=== PATIENT | female | born 1980 | race Caucasian/White ===

== ENCOUNTER → 2016-04-26 | Outpatient (CLI) | payer BC ==
--- NOTE | 2016-04-26 10:53 | REP ---
LEFT FOOT, FOUR VIEWS: HISTORY: Injury. There is no acute fracture or dislocation. There is an old fracture of the fourth metatarsal. The joint spaces are normal in appearance. IMPRESSION: There is no acute fracture or dislocation. Signed by Hong Gonzales MD 04/26/2016 10:56 A
== END ==
LOC: M WUC 10:20
PROVIDERS: ATTEND Physician Assistant
DX: S90.32XA Contusion of left foot, initial encounter (principal); X58.XXXA Exposure to other specified factors, initial encounter; Y92.89 Other specified places as the place of occurrence of the external cause; Y93.89 Activity, other specified; Y99.8 Other external cause status

== ENCOUNTER → 2016-05-16 | Outpatient (REF) | payer BC | LOC: M SFHCWAGY 10:58 | PROVIDERS: ATTEND Nurse Practitioner Family | DX: Z11.51 Encounter for screening for human papillomavirus (HPV) (principal) ==

== ENCOUNTER → 2017-01-29 | Outpatient (CLI) | payer BC ==
--- NOTE | 2017-01-29 11:48 | REP ---
Clinical: Cough . Comparison: 04/11/2014 . Technique: PA and lateral. Findings: The mediastinum and cardiac silhouette are normal. The lung carlson are clear and without acute consolidation, effusion, or pneumothorax. The skeletal structures are intact and normal. Impression: 1. No acute cardiopulmonary process. Signed by Benja Moon MD 01/29/2017 11:40 A
== END ==
LOC: M SMT 11:14
PROVIDERS: ATTEND Physician Assistant Medical
DX: R05 Cough (principal)

== ENCOUNTER → 2017-05-26 | Outpatient (CLI) | payer BC ==
[~2017-05-26] MED LIST: METHACHOLINE KIT (J7674) INH
== END ==
LOC: M CARPUL 12:37
DX: R05 Cough (principal)
CPT/HCPCS: J7674

== ENCOUNTER → 2018-02-16 | Outpatient (CLI) | payer BC ==
[2018-02-16 13:05] LABS: ALBUMIN 3.9 GM/DL (3.2-5.2); ALT/SGPT 21 U/L (12-78); BILIRUBIN,TOTAL 0.3 MG/DL (0.2-1.0); BLOOD UREA NITROGEN 16 MG/DL (7-18); CALCIUM LEVEL 8.7 MG/DL (8.5-10.1); CARBON DIOXIDE LEVEL 26 MEQ/L (21-32); CHLORIDE LEVEL 104 MEQ/L (98-107); CHOLESTEROL LEVEL 217 MG/DL (<200); CHOLESTEROL RISK RATIO 4.254 (<5); FREE T4 0.96 NG/DL (0.76-1.46); GLOMERULAR FILTRATION RATE > 60.0 (>60); GLUCOSE, FASTING 94 MG/DL (70-100); HDL CHOLESTEROL 51 MG/DL (>40); LDL CHOLESTEROL 155 MG/DL (<100); NON-HDL-C 166 MG/DL; POTASSIUM SERUM 4.9 MEQ/L (3.5-5.1); SODIUM LEVEL 137 MEQ/L (136-145); THYROID STIMULATING HORMONE 0.744 uIU/ML (0.358-3.740); TOTAL PROTEIN 7.1 GM/DL (6.4-8.2); TRIGLYCERIDES LEVEL 53 MG/DL (<150)
[2018-02-16 13:07] LABS: TOTAL 25(OH) VITAMIN D 31.6 NG/ML (30.0-100.0)
== END ==
LOC: M WUC 10:26
PROVIDERS: ATTEND Physician Assistant
DX: R53.83 Other fatigue (principal); Z13.220 Encounter for screening for lipoid disorders

== ENCOUNTER 2018-07-13 20:43 | Emergency (ER) | payer BC ==
[~2018-07-13] VITALS: Ht 162.6 cm; Wt 77.3 kg
[2018-07-13] MEDS ORDERED: VITATAB74 PO (20:50)
[2018-07-13] MEDS ORDERED: KETOROLAC 30 MG/ML VIAL (J1885) IV ONE (21:30)
[2018-07-13] MEDS ORDERED: NS 1,000 ML IV ONE (21:30)
[2018-07-13 21:38] LABS: BASO % 0.4 % (0.0-1.0); EOS # 0.1 10^3/uL (0.0-0.50); EOS % 1.2 % (0.0-3.0); HEMATOCRIT 40.5 % (36.0-47.0); HEMOGLOBIN 13.8 g/dl (12.0-15.5); LYMPH # 1.8 10^3/uL (1.5-4.5); LYMPH % 17.4 % (24.0-44.0); MEAN CORPUSCULAR HEMOGLOBIN 27.7 pg (27.0-33.0); MEAN CORPUSCULAR HGB CONC 34.1 g/dl (32.0-36.5); MEAN CORPUSCULAR VOLUME 81.3 fl (80.0-96.0); MONO # 0.7 10^3/uL (0.0-0.8); MONO % 6.4 % (0.0-5.0); NEUTROPHILS # 7.8 10^3/uL (1.8-7.7); NEUTROPHILS % 74.4 % (36.0-66.0); PLATELET COUNT, AUTOMATED 327 10^3/uL (150-450); RED BLOOD COUNT 4.98 10^6/uL (4.00-5.40); WHITE BLOOD COUNT 10.5 10^3/uL (4.0-10.0)
[2018-07-13 21:56] LABS: ALBUMIN 4.2 GM/DL (3.2-5.2); ALT/SGPT 27 U/L (12-78); BILIRUBIN,DIRECT < 0.1 MG/DL (0.0-0.2); BILIRUBIN,TOTAL 0.3 MG/DL (0.2-1.0); BLOOD UREA NITROGEN 13 MG/DL (7-18); CALCIUM LEVEL 9.6 MG/DL (8.5-10.1); CARBON DIOXIDE LEVEL 27 MEQ/L (21-32); CHLORIDE LEVEL 105 MEQ/L (98-107); CREATININE FOR GFR 0.88 MG/DL (0.55-1.30); GLOMERULAR FILTRATION RATE > 60.0 (>60); GLUCOSE, FASTING 112 MG/DL (70-100); HCG, SERUM QUANTITATIVE < 1.0 MIU/ML; LIPASE 96 U/L (73-393); POTASSIUM SERUM 3.9 MEQ/L (3.5-5.1); SODIUM LEVEL 140 MEQ/L (136-145); TOTAL PROTEIN 7.5 GM/DL (6.4-8.2)
--- NOTE | 2018-07-13 22:52 | REPVR ---
EXAM: CT Abdomen and Pelvis Without Contrast EXAM DATE/TIME: 07/13/2018 10:17 PM CLINICAL HISTORY: 38 years old, female; Abdominal pain; Flank; Right; Additional info: R flank pain, R/O stone TECHNIQUE: Imaging protocol: Axial computed tomography images of the abdomen and pelvis without contrast. Coronal and sagittal reformatted images were created and reviewed. Radiation optimization: All CT scans at this facility use at least one of these dose optimization techniques: automated exposure control; mA and/or kV adjustment per patient size (includes targeted exams where dose is matched to clinical indication); or iterative reconstruction. COMPARISON: US ECHOGRAPHY TRANSVAGINAL 07/25/2015 10:08 AM FINDINGS: ABDOMEN: Liver: Normal. No mass. Gallbladder and bile ducts: Normal. No calcified stones. No ductal dilation. Pancreas: Normal. No ductal dilation. Spleen: Normal. No splenomegaly. Adrenals: Normal. No mass. Kidneys and ureters: Normal. No hydronephrosis. Stomach and bowel: There is increased feces throughout the colon consistent with constipation. Appendix: Normal appendix. PELVIS: Bladder: Unremarkable as visualized. Reproductive: IUD located centrally within the uterus. ABDOMEN and PELVIS: Intraperitoneal space: Normal. No free air. No significant fluid collection. Bones/joints: No acute fracture. No dislocation. Soft tissues: Unremarkable. Vasculature: Normal. No abdominal aortic aneurysm. Lymph nodes: Normal. No enlarged lymph nodes. IMPRESSION: There is increased feces throughout the colon consistent with constipation. Normal appendix. Electronically signed by: Rudy Ervin On 07/13/2018 22:51:57 PM
[2018-07-13] MEDS ORDERED: CIPR-249 PO (23:19)
[2018-07-13 23:25] VITALS: BP 119/60
[2018-07-13] MEDS ORDERED: CIPROFLOXACIN 500 MG TAB PO ONE (23:30)
== END 2018-07-13 23:40 | disposition home or self-care (01) ==
LOC: M ED 20:43
DX: K59.00 Constipation, unspecified (principal); N39.0 Urinary tract infection, site not specified
CPT/HCPCS: 74176; 80048; 80076; 81001; 83690; 84702; 85025; 87088; 87186; 96361; 96374; 99284; J1885

== ENCOUNTER → 2019-08-03 | Outpatient (REF) | payer BC ==
[~2019-08-03] MED LIST changes: +CIPR-249 PO; -METHACHOLINE KIT (J7674) INH; +VITATAB74 PO
== END ==
LOC: M SFHCWAGY 08:38
PROVIDERS: ATTEND Nurse Practitioner Family
DX: Z12.4 Encounter for screening for malignant neoplasm of cervix (principal)
CPT/HCPCS: 87624; G0123

== ENCOUNTER → 2020-02-14 | Outpatient (CLI) | payer SELFPAY | LOC: M LABSMTC 13:33 | PROVIDERS: ATTEND Pediatrics | DX: Z20.828 Contact with and (suspected) exposure to other viral communicable diseases (principal) ==

== ENCOUNTER 2020-03-16 11:25 | Emergency (ER) | payer BC, SELFPAY ==
[~2020-03-16] VITALS: Ht 162.6 cm; Wt 83.7 kg
--- OUTSIDE RECORDS SUMMARY | 2020-03-16 11:34 | CCD ---
Author Author [facility] Organization [facility] Address Unknown Phone Unavailable Care Team Providers Care Bird Raiser Name Role Phone Sharath Diaz MD Unavailable Unavailable Sharath Diaz MD Unavailable Unavailable Sharath Diaz MD Unavailable Unavailable Sharath Diaz MD Unavailable Unavailable Sharath Diaz MD Unavailable Unavailable Sharath Diaz MD Unavailable Unavailable Sharath Diaz MD Unavailable Unavailable Sharath Diaz MD Unavailable Unavailable Sharath Diaz MD Unavailable Unavailable Sharath Diaz MD Unavailable Unavailable Sharath Diaz MD Unavailable Unavailable Sharath Diaz MD Unavailable Unavailable Sharath Diaz MD Unavailable Unavailable Sharath Diaz MD Unavailable Unavailable Sharath Diaz MD Unavailable Unavailable Sharath Diaz MD Unavailable Unavailable Sharath Diaz MD Unavailable Unavailable Sharath Diaz MD Unavailable Unavailable Sharath Diaz MD Unavailable Unavailable Sharath Diaz MD Unavailable Unavailable Sharath Diaz MD Unavailable Unavailable Sharath Diaz MD Unavailable Unavailable Sharath Diaz MD Unavailable Unavailable Sharath Diaz MD Unavailable Unavailable Sharath Diaz MD Unavailable Unavailable Re-disclosure Warning The records that you are about to access may contain information from federally-assisted alcohol or drug abuse programs. If such information is present, then the following federally mandated warning applies: This information has been disclosed to you from records protected by federal confidentiality rules (42 CFR part 2). The federal rules prohibit you from making any further disclosure of this information unless further disclosure is expressly permitted by the written consent of the person to whom it pertains or as otherwise permitted by 42 CFR part 2. A general authorization for the release of medical or other information is NOT sufficient for this purpose. The Federal rules restrict any use of the information to criminally investigate or prosecute any alcohol or drug abuse patient.The records that you are about to access may contain highly sensitive health information, the redisclosure of which is protected by Article 27-F of the [facility] Public Health law. If you continue you may have access to information: Regarding HIV / AIDS; Provided by facilities licensed or operated by the [facility] Office of Mental Health; or Provided by the [facility] Office for People With Developmental Disabilities. If such information is present, then the following [facility] mandated warning applies: This information has been disclosed to you from confidential records which are protected by state law. State law prohibits you from making any further disclosure of this information without the specific written consent of the person to whom it pertains, or as otherwise permitted by law. Any unauthorized further disclosure in violation of state law may result in a fine or custodial sentence or both. A general authorization for the release of medical or other information is NOT sufficient authorization for further disc losure. Family History Family Member Name Family Member Gender Family Member Status Date o f Status Description Data Source(s) Unknown Unknown Problem [facility] ([facility]) Unknown Female Problem [facility]ENT ([facility]) Unknown Female Problem [facility] ([facility]) Unknown Female Problem MEDENT ([facility]) Encounters Encounter Providers Location Date Indications Data Source(s ) Outpatient [address] [facility] [address] 08/03/2019 12:00:00 AM EDT eCW1 ([facility]) Outpatient Attender: Rahul Diaz MD Physical Therapy 10:30:00 AM EST MEDENT ([facility]) Medications Medication Brand Name Start Date Product Form Dose Route Admi nistrative Instructions Pharmacy Instructions Status Indications Reaction Description Data Source(s) 500 mg 12/14/2019 12:00:00 AM EDT tablet extended release 24 hr 60 TAKE ONE TABLET BY MOUTH EVERY DAY FOR 7 DAYS THEN 2 TABLETS ONCE DAILY TAKE ONE TABLET BY MOUTH EVERY DAY FOR 7 DAYS THEN 2 TABLETS ONCE DAILY SOLD: 01/16/2020 [facility] 500 mg 12/14/2019 12:00:00 AM EDT tablet extended release 24 hr 60 TAKE ONE TABLET BY MOUTH EVERY DAY FOR 7 DAYS THEN 2 TABLETS ONCE DAILY TAKE ONE TABLET BY MOUTH EVERY DAY FOR 7 DAYS THEN 2 TABLETS ONCE DAILY SOLD: 12/14/2019 [facility] 500 mg 12/14/2019 12:00:00 AM EDT tablet extended release 24 hr 60 TAKE ONE TABLET BY MOUTH EVERY DAY FOR 7 DAYS THEN 2 TABLETS ONCE DAILY TAKE ONE TABLET BY MOUTH EVERY DAY FOR 7 DAYS THEN 2 TABLETS ONCE DAILY SOLD: 02/15/2020 [facility] 1.1 % 11/10/2019 12:00:00 AM EDT paste 100 BRUSH ON TEETH ONCE DAILY BRUSH ON TEETH ONCE DAILY SOLD: 11/15/2019 [facility] Cephalexin 250 MG Oral Tablet Cephalexin 05/28/2019 12:00:00 AM EDT active MEDENT ([facility] ) 250 mg 05/28/2019 12:00:00 AM EDT capsule 28 TAKE 1 CAPSULE BY MOUTH 4 TIMES A DAY TAKE 1 CAPSULE BY MOUTH 4 TIMES A DAY SOLD: 05/29/2019 [facility] Acetaminophen 325 MG / Oxycodone Hydrochloride 5 MG Or al Tablet [Percocet] Percocet 05/06/2019 12:00:00 AM EST completed MEDENT ([facility]) Acetaminophen 325 MG / Hydrocodone Bitartrate 5 MG Ora l Tablet Hydrocodone-Acetaminophen 05/06/2019 12:00:00 AM EST ORAL active MEDENT ([facility] ) 5-325 mg 05/06/2019 12:00:00 AM EST tablet 10 TAKE ONE TABLET BY MOUTH EVERY 6 HOURS NEEDED FOR PAIN AFTER SURGERY MAXIMUM DAILY DOSE = 4 TAKE ONE TABLET BY MOUTH EVERY 6 HOURS NEEDED FOR PAIN AFTER SURGERY MAXIMUM DAILY DOSE = 4 SOLD: 05/06/2019 [facility] Insurance Providers Payer name Policy type / Coverage type Policy ID Covered libertarian ID Covered libertarian's relationship to disla Policy Disla Plan Information SELF PAY ONLY [id number] [facility] FED[employer]PL[employer]EE PROGRAM [id number] ANSI-Commercial [id number] [employer] Commercial [id number] Self [id number] [facility] Commercial [id number] Family Dependent [id number] [employer] Commercial [id number] Family Dependen t [id number] Federal Commercial [id number] Family Dependent R [id number] ANSI-Commercial [id number] [facility] [employer] [id number] HU2 [id number] [facility] [employer] PROGRAM [id number] [employer] [place] [id number] SPO [id number] Federal Commercial [id number] Family Dependent R [id number] [employer] Commercial [id number] Self [id number] [facility] Commercial [id number] Family Dependent [id number] [employer] Commercial [id number] Family Dependen t [id number] [employer] Commercial [id number] Self [id number] [facility] Commercial [id number] Family Dependent [id number] [employer] Commercial [id number] Family Dependen t [id number] [employer] FEDERAL [id number] HU2 [id number] [place] FEDERAL B [id number] P [id number] [employer] Commercial [id number] Self [id number] [facility] Commercial [id number] Family Dependent [id number] [employer] Commercial [id number] Family Dependen t [id number] [employer] Commercial [id number] Self [id number] [place] Commercial [id number] Family Dependent [id number] [employer] Commercial [id number] Family Dependen t [id number] [place] Commercial [id number] Family Dependent [id number] [employer] Commercial [id number] Family Dependen t [id number] [place] Commercial [id number] Family Dependent [id number] [employer] Commercial [id number] Family Dependen t [id number] [employer]BS FEDERAL [id number] HU2 [id number] BCBS Federal Plan Commercial [id number] Family Dependent [id number] [facility] P UNAVAILABLE C UNAVAILABLE BC BS [place] FEDERAL [id number] HU2 [id number] Surgeries/Procedures Procedure Description Date Indications Data Source(s) INCISION EXTENSOR TENDON SHEATH WRIST 05/06/2019 12:00 :00 AM EST MEDENT ([facility] ) Results ID Date Data Source [id number] 02/14/2020 12:00:00 AM EST [facility] Name Value Range Interpretation Code Description Data Kristen rce(s) Supporting Document(s) SARS-CoV-2 (COVID-19) RNA [Presence] in Respiratory specimen by QIAN with probe detection [facility] This lab was ordered by [facility] and reported by [employer] ID Date Data Source [id number] 04/02/2019 11:32:00 AM EST MEDENT ([facility]) Name Value Range Interpretation Code Description Data Kristen rce(s) Supporting Document(s) Laboratory test finding (navigational concept) <pending> MEDENT ([facility]) Procedure Social History Code Duration Value Status Description Data Source(s ) Smoking 08/03/2019 12:00:00 AM EDT Never Smoker completed Never S moker eCW1 ([facility]) Vital Signs ID Date Data Source UNK Name Value Range Interpretation Code Description Data Source(s) Diastolic blood pressure 68 mm[Hg] 68 mm[Hg] eCW1 ([facility]) Systolic blood pressure 118 mm[Hg] 118 mm[Hg] e CW1 ([facility]) Body temperature 98.2 [degF] 98.2 [degF] eCW1 ( [facility]) Respiratory rate 16 /min 16 /min eCW1 ([facility]) Heart rate 76 /min 76 /min eCW1 ([facility]) Body mass index (BMI) [Ratio] 30.44 kg/m2 30.44 kg/m2 eCW1 ([facility]) Body height 63.75 [in_i] 63.75 [in_i] eCW1 ([facility]) Body weight 79.83 kg 79.83 kg eCW1 ([facility]) Body weight 176 [lb_av] 176 [lb_av] eCW1 ([facility])
[2020-03-16] MEDS ORDERED: METF10004 PO (11:37)
[2020-03-16 12:10] LABS: BASO % 0.7 % (0.0-1.0); EOS # 0.1 10^3/uL (0.0-0.5); EOS % 1.3 % (0.0-3.0); HEMOGLOBIN 13.9 g/dl (12.0-15.5); LYMPH # 1.4 10^3/uL (1.5-5.0); LYMPH % 25.6 % (24.0-44.0); MEAN CORPUSCULAR HEMOGLOBIN 27.3 pg (27.0-33.0); MEAN CORPUSCULAR HGB CONC 32.3 g/dl (32.0-36.5); MEAN CORPUSCULAR VOLUME 84.3 fl (80.0-96.0); MONO # 0.3 10^3/uL (0.0-0.8); MONO % 5.9 % (0.0-5.0); NEUTROPHILS # 3.6 10^3/uL (1.5-8.5); NEUTROPHILS % 66.3 % (36.0-66.0); PLATELET COUNT, AUTOMATED 335 10^3/uL (150-450); WHITE BLOOD COUNT 5.4 10^3/uL (4.0-10.0)
--- NOTE | 2020-03-16 12:13 | REP ---
INDICATION: CHEST PAIN. COMPARISON: 01/29/2017. TECHNIQUE: SINGLE PORTABLE AP VIEW OF THE CHEST WAS PERFORMED. FINDINGS: THERE IS NO ACUTE INFILTRATE OR PULMONARY EDEMA. LUNGS ARE CLEAR. HEART IS NOT SIGNIFICANTLY ENLARGED. MEDIASTINAL SILHOUETTE IS UNREMARKABLE. THE VISUALIZED OSSEOUS STRUCTURES ARE INTACT. IMPRESSION: NO ACUTE PULMONARY DISEASE. <Electronically signed by Eddi Jennings > 03/16/20 1103
--- OUTSIDE RECORDS SUMMARY | 2020-03-16 12:39 | CCD ---
Author Author [facility] Organization [facility] Address Unknown Phone Unavailable Care Team Providers Care Auto Electrician Name Role Phone Sharath Diaz MD Unavailable [...] Unavailable Unavailable Sharath Diaz MD Unavailable Unavailable Heitner, Sharath Kay MD Unavailable Unavailable Heitner, Sharath Kay MD Unavailable Unavailable Heitner, Sharath Kay MD Unavailable Unavailable Heitner, Sharath Kay MD Unavailable Unavailable Heittaz, Sharath Kay MD Unavailable Unavailable Re-disclosure Warning The records [...] is protected by Article 27-F of the [facility] Public Health law. If you continue you may have access to information: Regarding HIV / AIDS; Provided by facilities licensed or operated by the [facility] Office of Mental Health; or Provided by the [facility] Office for People With Developmental Disabilities. If such information is present, then the following [facility] mandated warning applies: This information has been [...] law may result in a fine or penitentiary sentence or both. A general authorization for the release of medical or other information is NOT sufficient authorization for further disc losure. Family History Family Member Name Family Member Gender Family Member Status Date o f Status Description Data Source(s) Unknown Unknown Problem MEDENT ([facility]) Unknown Female Problem MEDENT ([facility]) Unknown Female Problem MEDENT ([facility]) Unknown Female Problem MEDENT ([facility]) Encounters Encounter Providers Location Date Indications Data Source(s ) Outpatient [facility] [place] [address] 08/03/2019 12:00:00 AM EDT eCW1 ([facility]) Outpatient Attender: Rahul Diaz MD Physical Therapy 10:30:00 AM EST MED[facility] ([facility]) Medications Medication Brand [...] ON TEETH ONCE DAILY SOLD: 11/15/2019 [facility] Cephalexin 250 MG Oral Tablet Cephalexin 05/28/2019 12:00:00 AM EDT active MEDENT ([facility] ) 250 mg 05/28/2019 12:00:00 AM EDT capsule 28 TAKE 1 CAPSULE BY MOUTH 4 TIMES A DAY TAKE 1 CAPSULE BY MOUTH 4 TIMES A DAY SOLD: 05/29/2019 [facility] Acetaminophen 325 MG / Oxycodone Hydrochloride 5 MG Or al Tablet [Percocet] Percocet 05/06/2019 12:00:00 AM EST completed MEDENT ([facility] ) Acetaminophen 325 MG / Hydrocodone Bitartrate 5 MG Ora l Tablet Hydrocodone-Acetaminophen 05/06/2019 12:00:00 AM EST ORAL active MEDENT ([facility] ) 5-325 mg 05/06/2019 12:00:00 AM EST tablet 10 TAKE ONE TABLET BY MOUTH EVERY 6 HOURS NEEDED FOR PAIN AFTER SURGERY MAXIMUM DAILY DOSE = 4 TAKE ONE TABLET BY MOUTH EVERY 6 HOURS NEEDED FOR PAIN AFTER SURGERY MAXIMUM DAILY DOSE = 4 SOLD: 05/06/2019 [facility] Insurance Providers Payer name Policy type / Coverage type Policy ID Covered republican ID Covered republican's relationship to disla Policy Disla Plan Information [facility] FEDERAL EMPLOYEE PROGRAM [id number] SP [id number] SELF PAY ONLY [id number] SP [id number] [facility] FED[employer]AL [employer]OYEE PROGRAM [id number] ANSI-Commercial [id number] [employer] Commercial [id number] Self [id number] [facility] Commercial [id number] Family Dependent [id number] [employer] Commercial [id number] Family Dependen t [id number] Federal Commercial [id number] Family Dependent R [id number] ANSI-Commercial [id number] [facility] FED[employer]AL EMPLOYEE PROGRAM [id number] [facility] FED[employer] EM[employer]OYEE PROGRAM [id number] 2 [id number] [facility] [id number] SPO [id number] [facility] Commercial [id number] Family Dependent R [id number] [employer] Commercial [id number] Self [id number] [facility] Commercial [id number] Family Dependent [id number] [employer] Commercial [id number] Family Dependen t [id number] [employer] Commercial [id number] Self [id number] [facility] Commercial [id number] Family Dependent [id number] [employer] Commercial [id number] Family Dependen t [id number] [employer]CELL[employer] [facility] FEDERAL [id number] HU2 [id number] [facility] FEDERAL B [id number] P [id number] [employer] Commercial [id number] Self [id number] [facility] Commercial [id number] Family Dependent [id number] [employer] Commercial [id number] Family Dependen t [id number] [employer] Commercial [id number] Self [id number] [facility] Commercial [id number] Family Dependent [id number] [employer] Commercial [id number] Family Dependen t [id number] [facility] Commercial [id number] Family Dependent [id number] [employer] Commercial [id number] Family Dependen t [id number] [facility] Commercial [id number] Family Dependent [id number] [employer] Commercial [id number] Family Dependen t [id number] [employer]BS FEDERAL [id number] HU2 [id number] BCBS Federal Plan Commercial [id number] Family Dependent [id number] [facility] P UNAVAILABLE C UNAVAILABLE BC BS [place] FEDERAL [id number] HU2 [id number] Surgeries/Procedures Procedure Description Date Indications Data Source(s) INCISION EXTENSOR TENDON SHEATH WRIST 05/06/2019 12:00 :00 AM EST [facility] ([facility] ) Results ID Date Data Source [id number] 02/14/2020 12:00:00 AM EST [facility] Name Value Range Interpretation Code Description Data Kristen rce(s) Supporting Document(s) SARS-CoV-2 (COVID-19) RNA [Presence] in Respiratory specimen by QIAN with probe detection [facility] This lab was ordered by [facility] and reported by [employer]. ID Date Data Source [id number] 04/02/2019 11:32:00 AM EST MEDENT ([facility]) Name Value Range Interpretation Code Description Data Kristen rce(s) Supporting Document(s) Laboratory test finding (navigational concept) <pending> MEDENT ([facility]) Procedure Social History Code Duration Value Status Description Data Source(s ) Smoking 08/03/2019 12:00:00 AM EDT Never Smoker completed Never S moker eCW1 ([facility]) Vital Signs ID Date Data Source UNK Name Value Range Interpretation Code Description Data Source(s) Diastolic blood pressure 68 mm[Hg] 68 mm[Hg] eCW1 ([facility]) Systolic blood pressure 118 mm[Hg] 118 mm[Hg] e CW1 ([facility]) Body temperature 98.2 [degF] 98.2 [degF] eCW1 ( [facility]) Respiratory rate 16 /min 16 /min eCW1 ([facility]) Heart rate 76 /min 76 /min eCW1 ([facility]) Body mass index (BMI) [Ratio] 30.44 kg/m2 30.44 kg/m2 eCW1 ([facility]) Body height 63.75 [in_i] 63.75 [in_i] eCW1 ([facility]) Body weight 79.83 kg 79.83 kg eCW1 [facility] Body weight 176 [lb_av] 176 [lb_av] eCW1 ([facility])
[2020-03-16 13:06] LABS: ALBUMIN 4.2 GM/DL (3.2-5.2); ALT/SGPT 25 U/L (12-78); BILIRUBIN,DIRECT < 0.1 MG/DL (0.0-0.2); BILIRUBIN,TOTAL 0.4 MG/DL (0.2-1.0); HCG, SERUM QUALITATIVE NEGATIVE (NEGATIVE); LIPASE 99 U/L (73-393); NT-PRO BNP 50 PG/ML (<125); TOTAL PROTEIN 7.6 GM/DL (6.4-8.2)
[2020-03-16 16:00] VITALS: BP 121/77
--- NOTE | 2020-03-16 16:38 | ECGEPIP ---
[facility] - ED Test Date: 2020-03-16 Pat Name: RIGO RIOS Department: Room: - Gender: Female Doubler Helper: janki : 1980 Requested By: Adelina Hurst Order Number: [id number] Reading MD: Payam Ernandez Measurements Intervals [place] Rate: 94 P: 56 IL: 144 QRS: 40 QRSD: 97 T: 28 QT: 356 QTc: 447 Interpretive Statements SINUS RHYTHM POSSIBLE LEFT ATRIAL ENLARGEMENT POOR R WAVE PROGRESSION POSSIBLE INCOMPLETE RIGHT BUNDLE BRANCH BLOCK DIFFUSE ST DEPRESSIONS AND ST ELEVATION IN AVR, CONSIDER LMCA/3VD OCCLUSION Electronically Signed on 03-16-2020 16:38:41 EST by Payam Ernandez
== END 2020-03-16 18:14 | disposition home or self-care (01) ==
LOC: M ED 11:25
DX: R07.9 Chest pain, unspecified (principal); R00.2 Palpitations; R94.31 Abnormal electrocardiogram [ECG] [EKG]; Z20.828 Contact with and (suspected) exposure to other viral communicable diseases; F41.9 Anxiety disorder, unspecified; Z88.1 Allergy status to other antibiotic agents; Z88.8 Allergy status to other drugs, medicaments and biological substances; Z91.048 Other nonmedicinal substance allergy status; Z79.84 Long term (current) use of oral hypoglycemic drugs
CPT/HCPCS: 36415; 71045; 80047; 80076; 83690; 83880; 84443; 84484; 84703; 85025; 85379; 93005; 93041; 94760; 99285; U0003

== ENCOUNTER → 2020-04-06 | Outpatient (CLI) | payer BC ==
[~2020-04-06] MED LIST changes: +METF10004 PO
[2020-04-06 10:40] LABS: ALBUMIN 4.3 GM/DL (3.2-5.2); ALT/SGPT 22 U/L (12-78); BILIRUBIN,TOTAL 0.4 MG/DL (0.2-1.0); BLOOD UREA NITROGEN 10 MG/DL (7-18); CALCIUM LEVEL 9.9 MG/DL (8.5-10.1); CARBON DIOXIDE LEVEL 26 MEQ/L (21-32); CHLORIDE LEVEL 104 MEQ/L (98-107); CREATININE FOR GFR 0.88 MG/DL (0.55-1.30); GLOMERULAR FILTRATION RATE > 60.0 (>60); GLUCOSE, FASTING 113 MG/DL (70-100); POTASSIUM SERUM 4.2 MEQ/L (3.5-5.1); SODIUM LEVEL 138 MEQ/L (136-145); TOTAL PROTEIN 7.4 GM/DL (6.4-8.2)
[2020-04-06 11:47] LABS: HEMOGLOBIN A1c 5.7 %
[2020-04-06 11:50] LABS: FOLLICLE STIMULATING HORMONE 5.9 mIU/mL; LUTEINIZING HORMONE 3.2 mIU/mL
[2020-04-07 20:11] LABS: INSULIN LEVEL 10.1 uIU/mL (2.6-24.9); TESTOSTERONE FREE (DIRECT) 4.8 pg/mL (0.0-4.2)
== END ==
LOC: M LAB 09:34
PROVIDERS: ATTEND Family Medicine
DX: R07.89 Other chest pain (principal); L68.0 Hirsutism

== ENCOUNTER → 2020-04-06 | Outpatient (CLI) | payer BC ==
--- NOTE | 2020-04-10 10:40 | ECHO ---
DATE OF PROCEDURE: 04/06/2020 Age: 39 Gender: Female Height: 64 inches Weight: 178 pounds REFERRING PHYSICIAN: Aruna Salomon DO INDICATION: Cardiac murmur, unspecified. MEASUREMENTS: 2D Measurements: Left atrium 3.5 cm Left ventricle diastole 4.3 cm Intraventricular septum 1.05 cm Posterior wall 1.17 cm Aortic root 2.6 cm Proximal ascending aorta 3.5 cm Inferior vena cava 1.1 cm (more than 50% respiratory variation). Doppler Measurements: No aortic stenosis No aortic regurgitation Aortic valve velocity 159 cm/s LVOT velocity 99.2 cm/s LVOT VTI 19.2 cm No mitral regurgitation No mitral stenosis Mitral E velocity 90.8 cm/s Mitral A velocity 76.6 cm/s Mitral deceleration time 206 msec No tricuspid regurgitation No pulmonic regurgitation Pulmonary artery acceleration time 119 msec MITRAL ANNULAR TISSUE DOPPLER E prime septal 9.6 cm/s, E prime lateral 17.3 cm/s DESCRIPTION: Rhythm was sinus. Image quality was adequate. No pericardial effusion. This was a 2D, M-mode, color flow Doppler, and pulsed wave Doppler examination including mitral annular tissue Doppler. CONCLUSIONS: 1. Hyperdynamic LV systolic function. LVEF 75% by visual assessment. Normal left ventricle internal dimensions and wall thickness. Normal regional LV wall motion abnormalities. Normal LV diastolic function. 2. Structurally and functionally normal cardiac valves. 3. Otherwise normal echocardiogram Doppler findings. MTDD
== END ==
LOC: M CARPUL 12:00
PROVIDERS: ATTEND Family Medicine
DX: R01.1 Cardiac murmur, unspecified (principal)

== ENCOUNTER → 2020-07-14 | Outpatient (CLI) | payer BC ==
[~2020-07-14] MED LIST changes: +E-Z-GAS II EFFERVESCENT PACKET (SODIUM BICARB./CITRIC ACID/SIMETHICONE) As Ordered ONE; +E-Z-HD 98% w/w 340GM SUSP BTL As Ordered ONE; +E-Z-PAQUE 96% w/w SUSP 176GM BTL As Ordered ONE
== END ==
LOC: M RAD 06:48
PROVIDERS: ATTEND Internal Medicine Gastroenterology
DX: R07.89 Other chest pain (principal)

== ENCOUNTER → 2020-07-14 | Outpatient (CLI) | payer BC ==
[~2020-07-14] MED LIST changes: -E-Z-GAS II EFFERVESCENT PACKET (SODIUM BICARB./CITRIC ACID/SIMETHICONE) As Ordered ONE; -E-Z-HD 98% w/w 340GM SUSP BTL As Ordered ONE; -E-Z-PAQUE 96% w/w SUSP 176GM BTL As Ordered ONE
--- NOTE | 2020-07-14 08:06 | REP ---
INDICATION: CHEST PAIN, UNSPECIFIED- LABS FIRST COMPARISON: 06/20/2014 TECHNIQUE: Real time syed scale ultrasound examination using curved array transducer. FINDINGS: Liver is normal in contour, size, and echogenicity without focal hepatic lesions identified. Pancreas is incompletely evaluated due to interposed bowel gas. The gallbladder is normal and without gallstones, wall thickening, or pericholecystic fluid. No biliary ductal dilatation is appreciated and the common bile duct measures 3.2 mm diameter. Right kidney is normal in reniform shape without hydronephrosis and measures 11.2 x 5.5 x 4.4 cm. No ascites in the visualized right upper quadrant. IMPRESSION: Normal limited right upper quadrant ultrasound <Electronically signed by Benja Moon > 07/14/20 0802
[2020-07-14 08:14] LABS: CHOLESTEROL RISK RATIO 4.102 (<5)
--- NOTE | 2020-07-14 17:26 | REP ---
INDICATION: CHEST PAIN, UNSPECIFIED- LABS FIRST, US SECOND. COMPARISON: None. TECHNIQUE: This procedure was performed under the direct supervision of Dr. Jennings. Images were reviewed with Dr. Jennings. Liquid barium and gas producing granules were given in the erect position as well as liquid barium in the prone oblique positions in order to perform a double contrast esophagram examination. A combination of fluoroscopy, spot films and last image hold technology was utilized. 0.7 minutes of fluoro time was utilized for this procedure. FINDINGS: A single view PA chest x-ray is submitted as a location manager film. The superior mediastinal structures are midline. The heart size is within normal limits. The lungs are clear. During the oral and pharyngeal stages of deglutition there is laryngeal penetration. Esophageal transport is prompt and efficient and there is no esophagitis, stricture, mucosal ring, or hiatal hernia.Gastroesophageal reflux is not demonstrated on this examination. IMPRESSION: There is laryngeal penetration identified. Otherwise, unremarkable double-contrast esophagram examination. <Electronically signed by Chet Stanley > 07/14/20 1603 <Electronically signed by Eddi Jennings > 07/14/20 [id number]
== END ==
LOC: M LAB 06:51
PROVIDERS: ATTEND Internal Medicine Cardiovascular Disease
DX: R93.3 Abnormal findings on diagnostic imaging of other parts of digestive tract (principal)

== ENCOUNTER → 2020-07-19 | Outpatient (CLI) | payer BC ==
[~2020-07-19] MED LIST changes: +D31000TA2 PO; +EQL1CAP9 PO; +KYLE19.5 IU; +SUCR1SS PO; +VITMTA PO
== END ==
LOC: M LABSMTC 12:59
PROVIDERS: ATTEND Anesthesiology
DX: Z01.812 Encounter for preprocedural laboratory examination (principal)

== ENCOUNTER 2020-07-24 12:54 | Day surgery (SDC) | payer BC ==
[~2020-07-24] VITALS: Ht 162.6 cm; Wt 79.8 kg
[~2020-07-24 12:54] MED LIST changes: +NS 1,000 ML IV ONE
[2020-07-24] MEDS ORDERED: propofoL 200 MG/20 ML VIAL As Ordered ONE ×2 (14:05→14:23)
[2020-07-24] MEDS ORDERED: fentaNYL 100 MCG/2 ML INJECTION (J3010) As Ordered ONE (14:05)
[2020-07-24] MEDS ORDERED: LIDOCAINE 2% MDV 20ML VIAL As Ordered ONE (14:05)
--- NOTE | 2020-07-24 14:37 | ROOR ---
Patient Name: Nicole Cowan Procedure Date: 07/24/2020 2:13 PM Date of : 1980 Age: 40 Room: [facility] Gender: Female Note Status: Finalized Procedure: Upper GI endoscopy Indications: Dysphagia, Unexplained chest pain, Chest pain (non cardiac) Providers: Austyn Terry MD Referring MD: Aruna SAENZ DO Requesting Provider: Medicines: Monitored Anesthesia Care Complications: No immediate complications. Procedure: Pre-Anesthesia Assessment: - Prior to the procedure, a History and Physical was performed, and patient medications and allergies were reviewed. The patient is competent. The risks and benefits of the procedure and the sedation options and risks were discussed with the patient. All questions were answered and informed consent was obtained. Patient identification and proposed procedure were verified by the physician, the nurse and the anesthesiologist in the procedure room. Mental Status Examination: alert and oriented. Airway Examination: normal oropharyngeal airway and neck mobility. Respiratory Examination: clear to auscultation. CV Examination: normal. Prophylactic Antibiotics: The patient does not require prophylactic antibiotics. Prior Anticoagulants: The patient has taken no previous anticoagulant or antiplatelet agents. ASA Grade Assessment: II - A patient with mild systemic disease. After reviewing the risks and benefits, the patient was deemed in satisfactory condition to undergo the procedure. The anesthesia plan was to use monitored anesthesia care (MAC). Immediately prior to administration of medications, the patient was re-assessed for adequacy to receive sedatives. The heart rate, respiratory rate, oxygen saturations, blood pressure, adequacy of pulmonary ventilation, and response to care were monitored throughout the procedure. The physical status of the patient was re-assessed after the procedure. The Endoscope was introduced through the mouth, and advanced to the second part of duodenum. The upper GI endoscopy was accomplished without difficulty. The patient tolerated the procedure well. Findings: Normal mucosa was found in the entire esophagus. Biopsies were obtained from the proximal and distal esophagus with cold forceps for histology of suspected eosinophilic esophagitis. Verification of patient identification for the specimen was done by the physician and nurse using the patient's name, date and medical record number. Estimated blood loss was minimal. The Z-line was regular and was found 40 cm from the incisors. Patchy minimal inflammation characterized by erythema was found in the gastric antrum. Biopsies were taken with a cold forceps for Helicobacter pylori testing. The duodenal bulb and second portion of the duodenum were normal. Impression: - Normal mucosa was found in the entire esophagus. Biopsied. - Z-line regular, 40 cm from the incisors. - Gastritis. Biopsied. - Normal duodenal bulb and second portion of the duodenum. Recommendation: - Patient has a contact number available for emergencies. The signs and symptoms of potential delayed complications were discussed with the patient. Return to normal activities tomorrow. Written discharge instructions were provided to the patient. - High fiber diet. - Continue present medications. - Await pathology results. - Follow an antireflux regimen. - Telephone GI clinic for pathology results in 2 weeks. - Return to primary care physician. - Return to GI clinic if persistent symptoms or new symptoms. Procedure Code(s): --- Professional --- 25433, Esophagogastroduodenoscopy, flexible, transoral; with biopsy, single or multiple Diagnosis Code(s): --- Professional --- K29.70, Gastritis, unspecified, without bleeding R13.10, Dysphagia, unspecified R07.9, Chest pain, unspecified R07.89, Other chest pain CPT copyright 2019 [employer]. All rights reserved. The codes documented in this report are preliminary and upon patient coordinator review may be revised to meet current compliance requirements. Austyn Terry MD Austyn Terry MD 07/24/2020 2:37:18 PM Electronically signed by Austyn Terry MD Number of Addenda: 0 Note Initiated On: 07/24/2020 2:13 PM Estimated Blood Loss: Estimated blood loss was minimal.
[2020-07-24 15:13] VITALS: BP 124/82
== END 2020-07-24 15:15 | disposition home or self-care (01) ==
LOC: M OPP 12:54
PROVIDERS: ATTEND Internal Medicine Gastroenterology
DX: K29.70 Gastritis, unspecified, without bleeding (principal); F45.8 Other somatoform disorders; R13.10 Dysphagia, unspecified; R07.9 Chest pain, unspecified; R07.89 Other chest pain; Z79.899 Other long term (current) drug therapy; Z88.1 Allergy status to other antibiotic agents; Z91.048 Other nonmedicinal substance allergy status
CPT/HCPCS: 43239; 88305; 88342; J3010

== ENCOUNTER → 2020-09-05 | Outpatient (REF) | payer BC ==
[~2020-09-05] MED LIST changes: -NS 1,000 ML IV ONE; +[UNRECOGNIZED DRUG - OTHER] PO
[2020-09-05 17:37] LABS: BASO % 0.7 % (0.0-1.0); EOS # 0.1 10^3/uL (0.0-0.5); HEMATOCRIT 43.2 % (36.0-47.0); LYMPH % 33.1 % (24.0-44.0); MEAN CORPUSCULAR HEMOGLOBIN 27.3 pg (27.0-33.0); MEAN CORPUSCULAR HGB CONC 32.4 g/dl (32.0-36.5); MEAN CORPUSCULAR VOLUME 84.4 fl (80.0-96.0); MONO # 0.5 10^3/uL (0.0-0.8); MONO % 7.6 % (2.0-8.0); NEUTROPHILS # 3.3 10^3/uL (1.5-8.5); NEUTROPHILS % 56.3 % (36.0-66.0); PLATELET COUNT, AUTOMATED 285 10^3/uL (150-450); RED BLOOD COUNT 5.12 10^6/uL (4.00-5.40); WHITE BLOOD COUNT 5.9 10^3/uL (4.0-10.0)
[2020-09-05 18:08] LABS: BLOOD UREA NITROGEN 14 MG/DL (7-18); CARBON DIOXIDE LEVEL 26 MEQ/L (21-32); CHLORIDE LEVEL 102 MEQ/L (98-107); CREATININE FOR GFR 0.71 MG/DL (0.55-1.30); GLOMERULAR FILTRATION RATE > 60.0 (>60); GLUCOSE, FASTING 83 MG/DL (70-100); POTASSIUM SERUM 4.4 MEQ/L (3.5-5.1); SODIUM LEVEL 136 MEQ/L (136-145)
== END ==
LOC: M WUC 16:10
PROVIDERS: ATTEND Podiatrist
DX: D17.24 Benign lipomatous neoplasm of skin and subcutaneous tissue of left leg (principal); M79.672 Pain in left foot

== ENCOUNTER → 2020-09-18 | Outpatient (CLI) | payer BC | LOC: M LABSMTC 09:06 | PROVIDERS: ATTEND Anesthesiology | DX: Z01.812 Encounter for preprocedural laboratory examination (principal) ==

== ENCOUNTER 2020-09-22 07:36 | Day surgery (SDC) | payer BC ==
[~2020-09-22] VITALS: Ht 162.6 cm; Wt 78.4 kg
[~2020-09-22 07:36] MED LIST changes: +BUPIVACAINE HCL 0.5% 30 ML VIAL As Ordered ONE; +LIDOCAINE 1% MDV 20ML VIAL SQ PRN; +LIDOCAINE 2% MDV 20ML VIAL As Ordered ONE; +LR 1,000 ML IV ONE; +NEOSPORIN GU IRRIG 20 ML VIAL As Ordered ONE; +ceFAZolin SOD 2 GM in IV 1 EA IV ONE; +dexameTHASONE 4 MG/ML 1ML VIAL (J1100 PER 1MG) As Ordered ONE
[2020-09-22] MEDS ORDERED: MIDAZOLAM INJ 2MG/2ML VIAL (J2250 PER 1MG) As Ordered ONE (08:15)
[2020-09-22] MEDS ORDERED: fentaNYL 100 MCG/2 ML INJECTION (J3010) As Ordered ONE (08:17)
[2020-09-22] MEDS ORDERED: LIDOCAINE 2% 100MG/5ML SDV (FOR ANES.) As Ordered ONE (08:36)
[2020-09-22] MEDS ORDERED: SCOPOLAMINE 1MG TRANSDERMAL PATCH TOP ONE (08:40)
[2020-09-22] MEDS ORDERED: propofoL 200 MG/20 ML VIAL As Ordered ONE (09:47)
[2020-09-22] MEDS ORDERED: ONDANSETRON 4MG/2ML VIAL As Ordered ONE (09:47)
[2020-09-22] MEDS ORDERED: METOCLOPRAMIDE INJ 10MG/2ML VIAL (J2765 PER 1) As Ordered ONE (09:47)
[2020-09-22] MEDS ORDERED: dexameTHASONE 4 MG/ML 1ML VIAL (J1100 PER 1MG) As Ordered ONE (09:47)
[2020-09-22] MEDS ORDERED: KETOROLAC 30 MG/ML 1ML VIAL As Ordered ONE (10:44)
[2020-09-22] MEDS ORDERED: METOCLOPRAMIDE INJ 10MG/2ML VIAL (J2765 PER 1) IV PRN (10:55)
[2020-09-22] MEDS ORDERED: KETOROLAC 30 MG/ML 1ML VIAL IV PRN (10:55)
[2020-09-22] MEDS ORDERED: PERCOCET 5MG/325MG TAB PO PRN (10:55)
[2020-09-22] MEDS ORDERED: LR 1,000 ML IV SCH (10:55)
[2020-09-22] MEDS ORDERED: fentaNYL 100 MCG/2 ML INJECTION (J3010) IV PRN (10:55)
[2020-09-22] MEDS ORDERED: ONDANSETRON 4MG/2ML VIAL IV PRN (10:55)
[2020-09-22] MEDS ORDERED: ACETAMINOPHEN *IV* 1,000 MG in IV 1 EA IV ONE (11:05)
[2020-09-22 12:33] VITALS: BP 111/59
--- NOTE | 2020-09-23 11:26 | RO ---
OPERATIVE NOTE DATE OF OPERATION: 09/22/2020 PREOPERATIVE DIAGNOSIS: Lipoma, left ankle. POSTOPERATIVE DIAGNOSIS: Lipoma, left ankle. PROCEDURE: Excision of lipoma, left ankle. SURGEON: Jitendra Sena DPM ESTATE AGENT: None. ANESTHESIA: General. ESTIMATED BLOOD LOSS: Less than 1 mL. HEMOSTASIS: Thigh tourniquet at 275 mmHg for 34 minutes. DRAINS UTILIZED: None. DESCRIPTION OF OPERATION: On 09/22/20, this 40-year-old white female was taken from her hospital room into the operating room and placed on the operating table in supine position. Following the induction of IV sedation and local and regional anesthesia, the left lower extremity was prepped and draped in the usual aseptic manner. Attention was directed to the patient's left foot. There was noted to be a lipoma on the anterolateral foot and ankle. At this time, an approximately 7 cm incision was placed over this area with a slight ellipse of skin. Dissection was carried down until the lateral intermediate cutaneous nerve was identified and traced and retracted in a medial direction. Dissection was then carried down to the lipoma and all venous inflow was identified, clamped, cut, ligated, electrocoagulated as necessary. Dissection was carried down to the level of the fascia. No other soft tissue mass could be appreciated. The lesion was approximately 7 cm x 3-1/2 to 4 cm x 1/2 cm in thickness. This was extirpated from the wound. All remaining bleeders as encountered were electrocoagulated. The wound was flushed with copious amounts of bacitracin, neomycin and polymyxin B solution. Attention was directed towards closure where the subcutaneous tissues were coapted and maintained utilizing 4-0 Monocryl in a simple interrupted type fashion. The skin incision was coapted and maintained utilizing 3-0 nylon in a simple interrupted type fashion. Sterile dressing was applied consisting of Adaptic, 4x4s, 4x4 splints, Sarah and Kerlix. The thigh tourniquet was rapidly deflated and instantaneous capillary filling time was noted to digits 1-5 of the patient's left foot. The patient apparently tolerated the surgical procedure well and was taken from the OR to the recovery room for further monitoring by the anesthesia department. All specimens removed during the surgical procedure were sent to pathology for microscopic examination.
== END 2020-09-22 12:44 | disposition home or self-care (01) ==
LOC: M SDC 07:36
PROVIDERS: ATTEND Podiatrist
DX: D17.24 Benign lipomatous neoplasm of skin and subcutaneous tissue of left leg (principal); Z88.8 Allergy status to other drugs, medicaments and biological substances; Z79.899 Other long term (current) drug therapy
CPT/HCPCS: 11406; 81025; 88304; J0131; J0690; J1100; J1885; J2250; J2405; J2765; J3010

== ENCOUNTER → 2020-10-13 | Outpatient (CLI) | payer BC ==
[~2020-10-13] MED LIST changes: -BUPIVACAINE HCL 0.5% 30 ML VIAL As Ordered ONE; -LIDOCAINE 1% MDV 20ML VIAL SQ PRN; -LIDOCAINE 2% MDV 20ML VIAL As Ordered ONE; -LR 1,000 ML IV ONE; -NEOSPORIN GU IRRIG 20 ML VIAL As Ordered ONE; -ceFAZolin SOD 2 GM in IV 1 EA IV ONE; -dexameTHASONE 4 MG/ML 1ML VIAL (J1100 PER 1MG) As Ordered ONE
[2020-10-13 08:39] LABS: ALBUMIN 3.9 GM/DL (3.2-5.2); ALT/SGPT 24 U/L (12-78); BILIRUBIN,TOTAL 0.4 MG/DL (0.2-1.0); BLOOD UREA NITROGEN 14 MG/DL (7-18); CALCIUM LEVEL 9.3 MG/DL (8.5-10.1); CARBON DIOXIDE LEVEL 27 MEQ/L (21-32); CHLORIDE LEVEL 109 MEQ/L (98-107); CREATININE FOR GFR 0.76 MG/DL (0.55-1.30); GLOMERULAR FILTRATION RATE > 60.0 (>60); GLUCOSE, FASTING 98 MG/DL (70-100); POTASSIUM SERUM 4.5 MEQ/L (3.5-5.1); SODIUM LEVEL 140 MEQ/L (136-145); TOTAL PROTEIN 7.2 GM/DL (6.4-8.2)
[2020-10-13 08:54] LABS: HEMOGLOBIN A1c 5.6 %
== END ==
LOC: M LAB 07:31
PROVIDERS: ATTEND Family Medicine
DX: E28.2 Polycystic ovarian syndrome (principal)

== ENCOUNTER → 2020-11-20 | Outpatient (REF) | payer BC | LOC: M LAB REF 17:05 | PROVIDERS: ATTEND Family Medicine | DX: R82.90 Unspecified abnormal findings in urine (principal) ==

== ENCOUNTER → 2020-12-06 | Outpatient (CLI) | payer BC ==
--- NOTE | 2020-12-06 10:55 | REPVR ---
PROCEDURE INFORMATION: Exam: MR Head Without Contrast Exam date and time: 12/06/2020 8:58 AM Age: 40 years old Clinical indication: Headache. TECHNIQUE: Imaging protocol: MR of the head without contrast. COMPARISON: XA Esophagram Barium Swallow 07/14/2020 7:28 AM FINDINGS: Brain: Normal. No acute infarct. No hemorrhage. No significant white matter disease. No edema. Cerebral ventricles: Normal. No ventriculomegaly. Bones/joints: Unremarkable. Paranasal sinuses: Normal as visualized. No acute sinusitis. Mastoid air cells: Normal as visualized. No mastoid effusion. Orbital cavity: Unremarkable. Soft tissues: Unremarkable. IMPRESSION: No acute findings. Electronically signed by: Elliot Bradley On 12/06/2020 10:55:13 AM
== END ==
LOC: M RAD 07:36
PROVIDERS: ATTEND Family Medicine
DX: G44.52 New daily persistent headache (NDPH) (principal)

== ENCOUNTER → 2020-12-28 | Outpatient (REF) | payer BC | LOC: M LAB REF 17:09 | PROVIDERS: ATTEND Family Medicine | DX: R30.0 Dysuria (principal) ==

== ENCOUNTER → 2021-05-07 | Outpatient (CLI) | payer BC ==
[~2021-05-07] MED LIST changes: -D31000TA2 PO; +VITA100093 PO
== END ==
LOC: M WUC 13:02
PROVIDERS: ATTEND Physician Assistant
DX: M54.50 Low back pain, unspecified (principal)

== ENCOUNTER → 2021-08-20 | Outpatient (REF) | payer BC | LOC: M PLALAB 07:55 | PROVIDERS: ATTEND Advanced Practice Midwife | DX: Z12.4 Encounter for screening for malignant neoplasm of cervix (principal) | CPT/HCPCS: 87624; G0123 ==

== ENCOUNTER 2021-10-22 09:10 | Emergency (ER) | payer BC ==
[~2021-10-22] VITALS: Ht 162.6 cm; Wt 82.9 kg
[2021-10-22 12:15] LABS: HEMATOCRIT 45.1 % (36.0-47.0); HEMOGLOBIN 14.9 g/dl (12.0-15.5); MEAN CORPUSCULAR HEMOGLOBIN 27.7 pg (27.0-33.0); RED BLOOD COUNT 5.37 10^6/uL (4.00-5.40); WHITE BLOOD COUNT 5.9 10^3/uL (4.0-10.0)
[2021-10-22 12:16] LABS: BASO % 0.3 % (0.0-1.0); EOS # 0.2 10^3/uL (0.0-0.5); EOS % 3.2 % (0.0-3.0); LYMPH # 1.4 10^3/uL (1.5-5.0); MONO # 0.3 10^3/uL (0.0-0.8); MONO % 5.6 % (2.0-8.0); NEUTROPHILS % 67.7 % (36.0-66.0); PLATELET COUNT, AUTOMATED 316 10^3/uL (150-450)
[2021-10-22 12:32] LABS: RBC, URINE 0-1 /hpf (0-3); SQUAMOUS EPITHELIAL CELL URINE SMALL AMOUNT /hpf (SMALL AMT)
[2021-10-22 12:33] LABS: BACTERIA, URINE SMALL AMOUNT; HYALINE CAST, URINE NONE SEEN /lpf (0-1)
[2021-10-22 12:59] LABS: BLOOD UREA NITROGEN 10 MG/DL (7-18); CALCIUM LEVEL 10.1 MG/DL (8.5-10.1); CARBON DIOXIDE LEVEL 27 MEQ/L (21-32); CHLORIDE LEVEL 102 MEQ/L (98-107); CREATININE FOR GFR 0.77 MG/DL (0.55-1.30); GLOMERULAR FILTRATION RATE > 60.0 (>60); GLUCOSE, FASTING 98 MG/DL (70-100); POTASSIUM SERUM 4.2 MEQ/L (3.5-5.1); SODIUM LEVEL 134 MEQ/L (136-145)
[2021-10-22] MEDS ORDERED: CEFD300C41 PO (13:36)
[2021-10-22 13:44] VITALS: BP 130/78
[2021-10-22 14:10] LABS: GC DNA AMPLIFICATION NEGATIVE (NEGATIVE)
== END 2021-10-22 13:45 | disposition home or self-care (01) ==
LOC: M ED 09:10
DX: N39.0 Urinary tract infection, site not specified (principal); Z88.1 Allergy status to other antibiotic agents; Z88.2 Allergy status to sulfonamides; Z91.048 Other nonmedicinal substance allergy status; Z79.899 Other long term (current) drug therapy

== ENCOUNTER → 2021-11-02 | Outpatient (REF) | payer BC ==
[~2021-11-02] MED LIST changes: +CEFD300C41 PO
[2021-11-02 10:42] LABS: APPEARANCE, URINE MANUAL CLEAR (CLEAR); BILIRUBIN, URINE MANUAL NEGATIVE (NEGATIVE); BLOOD URINE MANUAL NEGATIVE (NEGATIVE); COLOR, URINE MANUAL YELLOW (YELLOW); GLUCOSE, URINE (UA) MANUAL NEGATIVE (NEGATIVE); KETONE, URINE MANUAL NEGATIVE (NEGATIVE); LEUKOCYTE ESTERASE, URINE MAN NEGATIVE (NEGATIVE); NITRITE, URINE MANUAL NEGATIVE (NEGATIVE); PH,URINE MAN 6.5 UNITS (5.0 - 7.0); PROTEIN, URINE MANUAL NEGATIVE (NEGATIVE); SPECIFIC GRAVITY,URINE MANUAL 1.005 (1.002-1.035); UROBILINOGEN, URINE MANUAL NORMAL (NORMAL)
== END ==
LOC: M SMT 09:56
PROVIDERS: ATTEND Physician Assistant
DX: N39.0 Urinary tract infection, site not specified (principal)

== ENCOUNTER → 2021-11-07 | Outpatient (CLI) | payer BC | LOC: M WHC 07:47 | PROVIDERS: ATTEND Family Medicine | DX: R10.11 Right upper quadrant pain (principal) ==

== ENCOUNTER → 2021-11-07 | Outpatient (CLI) | payer BC ==
[2021-11-07 11:10] LABS: HEMOGLOBIN A1c 5.8 %
[2021-11-07 11:42] LABS: CHOLESTEROL RISK RATIO 4.653 (<5); FREE T4 0.98 NG/DL (0.76-1.46); THYROID STIMULATING HORMONE 0.676 uIU/ML (0.358-3.740)
== END ==
LOC: M PLALAB 07:49
PROVIDERS: ATTEND Family Medicine
DX: Z13.220 Encounter for screening for lipoid disorders (principal)

== ENCOUNTER → 2022-08-28 | Outpatient (REF) | payer BC ==
[2022-08-28 18:13] LABS: APPEARANCE, URINE CLEAR (CLEAR); BACTERIA, URINE AUTO NEGATIVE (NEGATIVE); BILIRUBIN, URINE AUTO NEGATIVE (NEGATIVE); BLOOD, URINE BLOOD NEGATIVE (NEGATIVE); COLOR, URINE STRAW (YELLOW); GLUCOSE, URINE (UA) AUTO NEGATIVE (NEGATIVE); KETONE, URINE AUTO TRACE mg/dL (NEGATIVE); LEUKOCYTE ESTERASE, URINE AUTO NEGATIVE (NEGATIVE); NITRITE, URINE AUTO NEGATIVE (NEGATIVE); PROTEIN, URINE AUTO NEGATIVE (NEGATIVE); RBC, URINE AUTO 0 /HPF (0-3); SPECIFIC GRAVITY URINE AUTO 1.017 (1.002-1.035); SQUAMOUS EPITHELIAL CELL UR AU 0 /HPF (0-6); UROBILINOGEN, URINE AUTO 0.2 mg/dL (0.0-2.0); WBC, URINE AUTO 2 /HPF (0-3)
== END ==
LOC: M SMT 17:04
PROVIDERS: ATTEND Physician Assistant
DX: R30.0 Dysuria (principal)

== ENCOUNTER → 2022-10-01 | Outpatient (CLI) | payer OTHER | LOC: M WHC 09:03 | PROVIDERS: ATTEND Advanced Practice Midwife | DX: N63.20 Unspecified lump in the left breast, unspecified quadrant (principal) | CPT/HCPCS: 76642; 77066; G0279 ==

== ENCOUNTER → 2022-10-30 | Outpatient (CLI) | payer OTHER ==
[2022-10-30 10:41] LABS: BASO % 0.6 % (0.0-1.0); EOS # 0.2 10^3/uL (0.0-0.5); HEMATOCRIT 40.9 % (36.0-47.0); HEMOGLOBIN 13.3 g/dl (12.0-15.5); LYMPH # 1.5 10^3/uL (1.5-5.0); LYMPH % 29.2 % (24.0-44.0); MEAN CORPUSCULAR HEMOGLOBIN 27.3 pg (27.0-33.0); MEAN CORPUSCULAR HGB CONC 32.5 g/dl (32.0-36.5); MEAN CORPUSCULAR VOLUME 83.8 fl (80.0-96.0); MONO # 0.3 10^3/uL (0.0-0.8); MONO % 6.7 % (2.0-8.0); NEUTROPHILS % 59.1 % (36.0-66.0); PLATELET COUNT, AUTOMATED 295 10^3/uL (150-450); RED BLOOD COUNT 4.88 10^6/uL (4.00-5.40); WHITE BLOOD COUNT 5.1 10^3/uL (4.0-10.0)
[2022-10-30 11:13] LABS: FREE T4 1.12 NG/DL (0.89-1.76)
[2022-10-30 11:23] LABS: ALBUMIN 3.9 G/DL (3.2-5.2); ALKALINE PHOSPHATASE 51 U/L (46-116); ALT/SGPT 18 U/L (7.0-40); AST/SGOT 11 U/L (<34); BILIRUBIN,TOTAL 0.4 MG/DL (0.3-1.2); BLOOD UREA NITROGEN 13 MG/DL (9-23); CARBON DIOXIDE LEVEL 28 MMOL/L (20-31); CHLORIDE LEVEL 105 MMOL/L (98-107); CHOLESTEROL LEVEL 246 MG/DL (<200); CHOLESTEROL RISK RATIO 5.81 (<5); CREATININE FOR GFR 0.74 MG/DL (0.55-1.30); GLOMERULAR FILTRATION RATE > 60.0 (>58); GLUCOSE, FASTING 100 MG/DL (60-100); HDL CHOLESTEROL 42.3 MG/DL (>40); LDL CHOLESTEROL 190.1 MG/DL (<100); NON-HDL-C 203.7 MG/DL; POTASSIUM SERUM 4.7 MMOL/L (3.5-5.1); SODIUM LEVEL 139 MMOL/L (136-145); TOTAL PROTEIN 6.8 G/DL (5.7-8.2); TRIGLYCERIDES LEVEL 68 MG/DL (<150)
== END ==
LOC: M PLALAB 08:37
PROVIDERS: ATTEND Family Medicine
DX: Z13.220 Encounter for screening for lipoid disorders (principal); Z13.29 Encounter for screening for other suspected endocrine disorder; Z13.0 Encounter for screening for diseases of the blood and blood-forming organs and certain disorders involving the immune mechanism

== ENCOUNTER → 2022-11-21 | Outpatient (CLI) | payer OTHER | LOC: M LAB 08:59 | PROVIDERS: ATTEND Family Medicine | DX: Z13.220 Encounter for screening for lipoid disorders (principal); Z13.29 Encounter for screening for other suspected endocrine disorder ==

== ENCOUNTER 2023-03-24 12:44 | Day surgery (SDC) | payer OTHER ==
[~2023-03-24] VITALS: Ht 162.6 cm; Wt 79.9 kg
[~2023-03-24 12:44] MED LIST changes: +AZO1CAP2 PO; +CEFD1CAP9 PO; -CEFD300C41 PO; +NS 1,000 ML IV ONE; +PROBCAP14 PO
[2023-03-24] MEDS ORDERED: ONDANSETRON 4MG 2ML VIAL As Ordered ONE (15:12)
[2023-03-24] MEDS ORDERED: fentaNYL 100 MCG/2 ML INJECTION As Ordered ONE (15:14)
[2023-03-24 15:33] VITALS: TEMP 98.6
[2023-03-24 15:51] VITALS: BP 137/77; O2SAT 99
== END 2023-03-24 15:53 | disposition home or self-care (01) ==
LOC: M OPP 12:44
PROVIDERS: ATTEND Internal Medicine Gastroenterology
DX: Q39.4 Esophageal web (principal); R13.10 Dysphagia, unspecified; Z79.899 Other long term (current) drug therapy; Z88.1 Allergy status to other antibiotic agents; Z91.018 Allergy to other foods; Z91.048 Other nonmedicinal substance allergy status
CPT/HCPCS: 43249; J2405; J3010

== ENCOUNTER → 2023-09-22 | Outpatient (CLI) | payer OTHER ==
[~2023-09-22] MED LIST changes: -NS 1,000 ML IV ONE
== END ==
LOC: M WHC 08:19
PROVIDERS: ATTEND Advanced Practice Midwife
DX: Z12.31 Encounter for screening mammogram for malignant neoplasm of breast (principal)

== ENCOUNTER → 2023-09-22 | Outpatient (REF) | payer OTHER ==
[2023-09-25 13:11] LABS: HPV APTIMA Not Detected (Not Detected)
== END ==
LOC: M SFHCWAGY 13:23
PROVIDERS: ATTEND Advanced Practice Midwife
DX: Z12.4 Encounter for screening for malignant neoplasm of cervix (principal)
CPT/HCPCS: 87624; G0123

== ENCOUNTER 2023-12-26 11:12 | Day surgery (SDC) | payer OTHER ==
[~2023-12-26] VITALS: Ht 162.6 cm; Wt 83.2 kg
[~2023-12-26 11:12] MED LIST changes: +CVS-161 PO; +QC F0.52 PO; +THERTAB52 PO; +TIZA10TA PO
[2023-12-26] MEDS ORDERED: propofoL 200 MG/20 ML VIAL As Ordered ONE (11:13)
[2023-12-26] MEDS ORDERED: dexmedeTOMIDine (4MCG/ML)200MCG/50ML BTL (PRECEDEX) As Ordered ONE (11:13)
[2023-12-26] MEDS ORDERED: MIDAZOLAM INJ 2MG/2ML VIAL As Ordered ONE (11:13)
[2023-12-26] MEDS ORDERED: LIDOCAINE 2% 100MG/5ML SDV (FOR ANES.) As Ordered ONE (11:13)
[2023-12-26] MEDS ORDERED: ONDANSETRON 4MG 2ML VIAL As Ordered ONE (11:13)
[2023-12-26] MEDS ORDERED: KETOROLAC 60MG 2ML VIAL As Ordered ONE (13:50)
[2023-12-26] MEDS: ceFAZolin SOD 2 GM in IV 1 EA IV ONE (15:45)
[2023-12-26] MEDS: LIDOCAINE 2% MDV 20ML VIAL As Ordered ONE (15:54)
[2023-12-26] MEDS: GENTAMICIN SULF 80MG/2ML VIAL As Ordered ONE (15:54)
[2023-12-26 16:37] VITALS: BP 132/75; TEMP 97.5; O2SAT 98
== END 2023-12-26 16:50 | disposition home or self-care (01) ==
LOC: M SDC 11:12
PROVIDERS: ATTEND Podiatrist
DX: M67.472 Ganglion, left ankle and foot (principal); K21.9 Gastro-esophageal reflux disease without esophagitis; E28.2 Polycystic ovarian syndrome; Z88.8 Allergy status to other drugs, medicaments and biological substances; Z91.018 Allergy to other foods; Z79.899 Other long term (current) drug therapy
CPT/HCPCS: 28090; 88304; J0665; J0690; J1100; J1580; J1885; J2250; J2405

== ENCOUNTER → 2025-01-18 | Outpatient (REF) | payer OTHER ==
[2025-01-18 12:56] LABS: AMORPHOUS SEDIMENT SMALL (NEGATIVE); APPEARANCE, URINE CLOUDY (CLEAR); BACTERIA, URINE AUTO NEGATIVE (NEGATIVE); BILIRUBIN, URINE AUTO NEGATIVE (NEGATIVE); BLOOD, URINE BLOOD 2+ (NEGATIVE); GLUCOSE, URINE (UA) AUTO NEGATIVE (NEGATIVE); KETONE, URINE AUTO NEGATIVE (NEGATIVE); LEUKOCYTE ESTERASE, URINE AUTO 2+ (NEGATIVE); NITRITE, URINE AUTO NEGATIVE (NEGATIVE); PROTEIN, URINE AUTO NEGATIVE (NEGATIVE); RBC, URINE AUTO 14 /HPF (0-3); SPECIFIC GRAVITY URINE AUTO 1.019 (1.002-1.035); SQUAMOUS EPITHELIAL CELL UR AU 2 /HPF (0-6); UROBILINOGEN, URINE AUTO 0.2 mg/dL (0.0-2.0); WBC, URINE AUTO 118 /HPF (0-3)
== END ==
LOC: M LAB REF 12:07
PROVIDERS: ATTEND Physician Assistant Medical
DX: N39.0 Urinary tract infection, site not specified (principal)

== ENCOUNTER → 2025-02-01 | Outpatient (REF) | payer OTHER ==
[2025-02-03 18:27] LABS: HPV APTIMA Not Detected (Not Detected)
== END ==
LOC: M SFHCWAGY 17:52
PROVIDERS: ATTEND Advanced Practice Midwife
DX: Z12.4 Encounter for screening for malignant neoplasm of cervix (principal)
CPT/HCPCS: 87624; G0123